=== PATIENT | male | born 1990 | race Caucasian/White ===

== ENCOUNTER 2017-05-26 20:09 | Emergency (ER) | payer OTHER ==
[2017-05-26 21:51] VITALS: BP 148/79
== END 2017-05-26 21:51 | disposition home or self-care (01) ==
LOC: ED 20:09
DX: S61.212A Laceration without foreign body of right middle finger without damage to nail, initial encounter (principal); W45.8XXA Other foreign body or object entering through skin, initial encounter; Y93.89 Activity, other specified; Y92.89 Other specified places as the place of occurrence of the external cause; Y99.8 Other external cause status
CPT/HCPCS: 90715; A4570; J0696; J2001; Q0092